=== PATIENT | female | born 1955 | race Caucasian/White ===

== ENCOUNTER 2016-10-11 10:07 | Outpatient (CLI) | payer OTHER ==
[~2016-10-11 10:07] MED LIST: CLARITIN10 MG PO; LISINOPRIL/HYDR1 TAB; LISINOPRIL/HYDR1 TAB PO; LISINOPRIL10 MG PO; LOSARTAN POTASS1 TAB PO; METFORMIN HCL500 MG PO; MULTIPLE VITAMIN PO; MULTIVITAMIN1 TAB PO; NITROSTAT0.4 MG SL; PRILOSEC20 MG PO; ULTRAM EQIVALEN50 MG PO; VITAMIN D-31000 UNIT PO; VITAMIN D-32000 UNIT PO; [UNRECOGNIZED DRUG - CODE] PO
--- NOTE | 2016-10-11 14:13 | DIAGNOSTIC IMAGING REPORT ---
PROCEDURE: XR BARIUM SWALLOW INDICATION: Mid chest pain. Possible reflux. TECHNIQUE: Double contrast study. Fluoroscopy time, 4.2 minutes; 2713.69 mGy. 64 fluoroscopic images (including cine fluoroscopy of the esophagus). COMPARISON: None. FINDINGS: Pharyngoesophagus is normal. Mild to moderate gastroesophageal reflux. There are mild intermittent tertiary contractions of the esophagus (presbyesophagus). No constricting or polypoid lesions. IMPRESSION: 1. Mild to moderate gastroesophageal reflux. 2. Mild tertiary contractions of the esophagus (presbyesophagus).
[2016-12-18] MEDS ORDERED: GLIPIZIDE5 MG PO (15:15)
== END 2016-10-11 23:00 ==
LOC: XR SRH 10:07
DX: K21.9 Gastro-esophageal reflux disease without esophagitis (principal)

== ENCOUNTER 2016-12-21 08:51 | Day surgery (SDC) | payer OTHER ==
[~2016-12-21] VITALS: Ht 157.5 cm; Wt 94.7 kg
[2016-12-21] VITALS (10 sets, daily range): BP systolic 121–147; BP diastolic 62–75
[~2016-12-21 08:51] MED LIST changes: +GLIPIZIDE5 MG PO
--- NOTE | 2016-12-21 13:04 | Operative Report ---
Operative Report Date of Surgery: 12/21/16 Preoperate Diagnosis: the esophageal reflux. Postoperative Diagnosis: gastroesophageal reflux. Surgeon: Pavan Nance MD Truer Pinion And Wheel Surgeon: Juventino Shah MD Procedure Performed: Laparoscopic closure small hiatal hernia, and Toupet procedure Anesthesia: Gen. endotracheal Indications: 60-year-old female history of reflux. Barium swallow shows mild to moderate reflux. Upper GI endoscopy shows chronic inflammatory changes distal esophagus. 24-hour pH manometric studies were normal. After explaining options of treatment to the patient and she has opted for an anti-reflux procedure. FINDINGS: A small hiatal hernia. Surgical Technique: Patient was brought to the operating room. Patient was placed in the supine position. Patient underwent general endotracheal anesthesia by the anesthesiology department. An orogastric tube was placed to decompress the stomach was inflated. Patient was then placed in low lithotomy position. The patient's thighs and hips were secured to the prevent shifting during the surgery. Antonio catheter was placed. The patient's abdomen was prepped and draped in a sterile fashion. A supraumbilical incision made carried down to skin and subcutaneous tissue. A varies needle was inserted through this site into the abdominal cavity. After ascertaining its appropriate position a pneumoperitoneum was obtained using CO2 insufflation to approximate 14-15 mmHg pressure. The varies needle was removed and replaced with a 10 mm trocar. The trocar removed leaving the sleeves behind. A laparos stomach copic video camera was introduced through the trocar sleeve into the abdominal cavity. The self retaining liver retractor was introduced through a small incision in the subxiphoid region.. The. The self-retaining liver retractor was placed beneath the le sleeves ft lobe of the liver and the left lobe o f the liver was retracted cephalad.. . Under direct visualization a separate 10 mm trocar was placed through the left anterior abdominal wall. Under direct visualization two 10 mm trochars were placed in the subxiphoid region approximate one handbreadth apart. Each trocar entered the abdominal wall under direct visualization. Instrumentation was then introduced through the trocars into the abdominal cavity. The aforementioned findings noted. The superior aspect of the hepatogastric ligament was taken down using the ThunderBeat. This dissection continued onto the phrenoesophageal ligament. The esophagus was then circumferentially isolated using a combination of blunt dissection and the ThunderBeat. We were able to create our window posteriorly to the esophagus and the stomach visualizing both bundles of the right crura. The right and left bundle to the crura were approximated using the 0 Surgidac Endo Stitch using extracorporeal knot tying technique. The approximation was inspected to insure that the crura was not impinging the esophagus which could result in post op dysphgia. Our attention was then turned to the short gastrics which were taken down using the ThunderBeat. At this point we were able to bring the upper fundus of the stomach posteriorly behind the esophagus and suture the stomach to to the right crura using the 0 Surgidac Endo Stitch and extracorporeal knot tying technique. The right portion of the posterior fundic wrap was sutrured to the right lateral aspect of the esophagus using 0 Surgidac Endo Stitch through the seromusucular on the stomach and muscular layer of the esophagus. Again using the extracorporial knot tying technique. This was repeated again on the right . The left portion of the posterior fundic wrap was sutured to the left lateral aspect of the esophagus using 0 Surgidac Endo Stitch again through the seromuscular in the stomach and the muscular layer of the esophagus. Thus creating 180 Toupet wrap. Once statisfactory approximation and positioning of the stomach to the esophagus and hemostasis assured, all trochars were removed from the abdominal cavity. The pneumoperitoneum was released. All trochars sites were approximated using 4-0 Polysorb and SteriStrips. Sterile occlusive dressings were the used to cover the wounds. The patient was placed back into the supine position and extubated. The patient was extubated and transfered to the recovery room in satisfactory condition. There were no surgical or anesthesic complications. COMPLICATIONS: None CONDITION: Stable to postop anesthesia recovery room ESTIMATED BLOOD LOSS: None FLUIDS: 800 cc lactated Ringer's DRAINS: None SPECIMENS: None
--- NOTE | 2016-12-21 15:53 | Operative Report ---
Operative Report Surgical Technique: Patient was brought to the operating room. Patient was placed in the supine position. Patient underwent general endotracheal anesthesia by the anesthesiology department. An orogastric tube was placed to decompress the stomach was inflated. Patient was then placed in low lithotomy position. The patient's thighs and hips were secured to the prevent shifting during the surgery. Antonio catheter was placed. The patient's abdomen was prepped and draped in a sterile fashion. A supraumbilical incision made carried down to skin and subcutaneous tissue. A varies needle was inserted through this site into the abdominal cavity. After ascertaining its appropriate position a pneumoperitoneum was obtained using CO2 insufflation to approximate 14-15 mmHg pressure. The varies needle was removed and replaced with a 10 mm trocar. The trocar removed leaving the sleeves behind. A lapaHello! Messengeric video camera was introduced through the trocar sleeve into the abdominal cavity. The self retaining liver retractor was introduced through a small incision in the subxiphoid region.. The. The self-retaining liver retractor was placed beneath the le sleeves ft lobe of the liver and the left lobe o f the liver was retracted cephalad.. . Under direct visualization a separate 10 mm trocar was placed through the left anterior abdominal wall. Under direct visualization two 10 mm trochars were placed in the subxiphoid region approximate one handbreadth apart. Each trocar entered the abdominal wall under direct visualization. Instrumentation was then introduced through the trocars into the abdominal cavity. The aforementioned findings noted. The superior aspect of the hepatogastric ligament was taken down using the ThunderBeat. This dissection continued onto the phrenoesophageal ligament. The esophagus was then circumferentially isolated using a combination of blunt dissection and the ThunderBeat. We were able to create our window posteriorly to the esophagus and the stomach visualizing both bundles of the right crura. The right and left bundle to the crura were approximated using the 0 Surgidac Endo Stitch using extracorporeal knot tying technique. The approximation was inspected to insure that the crura was not impinging the esophagus which could result in post op dysphgia. Our attention was then turned to the short gastrics which were taken down using the ThunderBeat. At this point we were able to bring the upper fundus of the stomach posteriorly behind the esophagus and suture the stomach to to the right crura using the 0 Surgidac Endo Stitch and extracorporeal knot tying technique. The right portion of the posterior fundic wrap was sutrured to the right lateral aspect of the esophagus using 0 Surgidac Endo Stitch through the seromusucular on the stomach and muscular layer of the esophagus. Again using the extracorporial knot tying technique. This was repeated again on the right . The left portion of the posterior fundic wrap was sutured to the left lateral aspect of the esophagus using 0 Surgidac Endo Stitch again through the seromuscular in the stomach and the muscular layer of the esophagus. Thus creating 180 Toupet wrap. Once statisfactory approximation and positioning of the stomach to the esophagus and hemostasis assured, all trochars were removed from the abdominal cavity. The pneumoperitoneum was released. All trochars sites were approximated using 4-0 Polysorb and SteriStrips. Sterile occlusive dressings were the used to cover the wounds. The patient was placed back in supine position and extubated. The patient was extubated and transfered to the recovery room in satisfactory condition. There were no surgical or anesthesic complications. COMPLICATIONS: None CONDITION: Stable to postanesthesia recovery room ESTIMATED BLOOD LOSS: None FLUIDS; 800 cc lactated Ringer's DRAINS; none SPECIMEN; none
[2016-12-22 02:52] VITALS: BP 162/79
[2016-12-22 05:43] VITALS: BP 146/82
--- NOTE | 2016-12-22 06:18 | Progress Note ---
Subjective General 61-year-old female. Postop day 1 status post laparoscopic Toupet procedure. Ambulatory. Comfortable. Tolerating clear liquids no dysphasia. No reflux. Physical Exam Vital Signs / I&Os Vital Signs Date Time Temp Pulse Resp B/P Pulse O2 O2 Flow FiO2 Ox Delivery Rate 12/22 0543 98.4 88 18 146/82 94 Room Air I&O 12/21 0800 05 1600 05 0000 Intake Total 1705 240 Output Total 1564 800 Balance 141 -560 General Appearance Alert, Oriented X3, No acute distress Lungs Clear to auscultation Cardiovascular Regular rate and rhythm Abdomen trocar sites were dry. Neurological No lateralizing signs Psych/Mental Status Mood normal Assessment and Plan Problem List 1. STATUS POST LAPAROSCOPIC TOUPET PROCEDURE Plan Stable postop. Plan DC home.
[2016-12-22] MEDS ORDERED: HYCET1 ML PO (06:20)
--- NOTE | 2016-12-22 06:22 | Provider's Discharge Care Plan ---
Problem, Goal, Plan Problem List 1. STATUS POST LAPAROSCOPIC TOUPET PROCEDURE Goals: Improve function, Therapeutic intervention Instructions: Follow up as directed, Take meds as directed
--- NOTE | 2016-12-22 06:22 | Provider's Discharge Care Plan ---
Problem, Goal, Plan Problem List 1. STATUS POST LAPAROSCOPIC TOUPET PROCEDURE Goals: Improve function, Therapeutic intervention Instructions: Follow up as directed, Take meds as directed
== END 2016-12-22 11:40 | disposition home or self-care (01) ==
LOC: OR SRH 08:51 → SCU SRH 08:51 → OR SRH 10:30 → ACUTE2 SRH 15:24 → OR SRH 12-22 11:40
PROVIDERS: Specialist
PROC: 0DV44ZZ Restriction of Esophagogastric Junction, Percutaneous Endoscopic Approach (ICD-10-PCS; principal; 2016-12-21 10:30)
DX: K21.9 Gastro-esophageal reflux disease without esophagitis (principal); E11.9 Type 2 diabetes mellitus without complications; Z79.84 Long term (current) use of oral hypoglycemic drugs; I10 Essential (primary) hypertension